=== PATIENT | female | born 1995 | race African-American/Black ===

== ENCOUNTER 2016-09-15 19:36 | Emergency (ER) | payer OTHER | END 2016-09-15 21:36 | disposition home or self-care (01) | LOC: ER 19:36 | DX: O99.519 Diseases of the respiratory system complicating pregnancy, unspecified trimester (principal); J06.9 Acute upper respiratory infection, unspecified; J45.909 Unspecified asthma, uncomplicated | CPT/HCPCS: 84703; 99283 ==